=== PATIENT | female | born 1985 | race American Indian/Alaskan Native ===

== ENCOUNTER 2017-11-13 13:10 | Emergency (ER) | payer SELFPAY ==
[2017-11-13 14:12] VITALS: BP 127/67
[2017-11-13 14:34] LABS: Basophils # (Auto) 0.1 K/mm3 (0.0-0.1); Eosinophils % (Auto) 0.4 % (0.0-4.3); Hematocrit 35.2 % (30.3-42.9); Hemoglobin 11.6 gm/dl (10.1-14.3); Lymphocytes # (Auto) 1.1 K/mm3 (1.2-5.4); Lymphocytes % (Auto) 15.2 % (13.4-35.0); Mean Corpuscular HGB Conc 33 % (30-34); Mean Corpuscular Volume 77 fl (79-97); Monocytes # (Auto) 0.5 K/mm3 (0.0-0.8); Monocytes % (Auto) 7.2 % (0.0-7.3); Platelet Count 293 K/mm3 (140-440); Red Cell Distribution Width 14.5 % (13.2-15.2)
[2017-11-13 14:36] LABS: Mean Corpuscular Hemoglobin 25 pg (28-32)
[2017-11-13 14:51] LABS: Alanine Aminotransferase 6 units/L (7-56); Albumin 4.3 g/dL (3.9-5); BUN/Creatinine Ratio 10; Blood Urea Nitrogen 7 mg/dL (7-17); Calcium 9.9 mg/dL (8.4-10.2); Hemolysis Index 0
[2017-11-13 15:16] LABS: Bacteria,Urine 3+ /HPF (Negative); Bilirubin,Urine NEG (Negative); Blood,Urine NEG (Negative); Color,Urine Yellow (Yellow); Mucus,Urine 3+ /HPF
--- NOTE | 2017-11-13 17:57 | Emergency Department Report ---
HPI - General Chief Complaint: Abdominal Pain Time Seen by Provider: 11/13/17 17:42 - HPI HPI: Room 7 The patient is a 32-year-old female presenting with a chief complaint of abdominal cramping. The patient states for the past 2 days she's had intermittent lower abdominal cramping. Denies vaginal bleeding or dysuria. Patient denies nausea vomiting or diarrhea. Patient denies fever. Patient also complains of soreness of her buttocks for the past 2 days. Patient denies preceding trauma Location: [See above] Duration: 2 days Quality: Cramping Severity: Moderate Modifying factors: [see above] Context: [see above] Mode of transportation: [not driving] ED Past Medical Hx - Past Medical History Previous Medical History?: No - Surgical History Past Surgical History?: No - Family History Family history: no significant - Social History Smoking Status: Never Smoker Substance Use Type: None (denies illicit drug use), Alcohol (occasional) - Medications Home Medications: Home Medications Medication Instructions Recorded Confirmed Last Taken Type Cyclobenzaprine [Flexeril] 10 mg PO TID PRN #10 tablet 11/13/17 Unknown Rx Nitrofurantoin Macrocrystal 100 mg PO BID #14 capsule 11/13/17 Unknown Rx [Nitrofurantoin] ED Review of Systems ROS: Stated complaint: CRAMPS Other details as noted in HPI Constitutional: denies: fever Gastrointestinal: abdominal pain. denies: nausea, vomiting, diarrhea Genitourinary: denies: dysuria, abnormal menses Musculoskeletal: myalgia Physical Exam - Physical Exam Vital Signs: Vital Signs 11/13/17 14:07 Temperature 98.0 F Pulse Rate 75 Respiratory 18 Rate Blood Pressure 127/67 O2 Sat by Pulse 100 Oximetry Physical Exam: GENERAL: The patient is well-developed well-nourished female lying on stretcher not appearing to be in acute distress. [] HEENT: Normocephalic. Atraumatic. Extraocular motions are intact. Patient has moist mucous membranes. NECK: Supple. Trachea midline CHEST/LUNGS: Clear to auscultation. There is no respiratory distress noted. HEART/CARDIOVASCULAR: Regular. There is no tachycardia. There is no gallop rub or murmur. ABDOMEN: Abdomen is soft, with discomfort to palpation in the suprapubic region. Patient has normal bowel sounds. There is no abdominal distention. SKIN: There is no rash. There is no edema. There is no diaphoresis. NEURO: The patient is awake, alert, and oriented. The patient is cooperative. The patient has normal speech MUSCULOSKELETAL: There is no evidence of acute injury. ED Course Vital Signs 11/13/17 14:07 Temperature 98.0 F Pulse Rate 75 Respiratory 18 Rate Blood Pressure 127/67 O2 Sat by Pulse 100 Oximetry ED Medical Decision Making - Lab Data Result diagrams: 11/13/17 14:22 11/13/17 14:22 - Radiology Data Radiology results: report reviewed (pelvic ultrasound), image reviewed (pelvic ultrasound) [facility] [address] [place] [address] Ultrasound Report Signed Patient: HALLIE GARNER MR#: [id number] : 1985 Acct:[id number] Age/Sex: 32 / F ADM Date: 11/13/17 Loc: ED Attending Dr: Ordering Physician: TIN WILCOX MD Date of Service: 11/13/17 Procedure(s): US OB transvaginal Accession Number(s): [id number] cc: TIN WILCOX MD FINAL REPORT EXAM: US OB TRANSVAGINAL HISTORY: abd pain in COMPARISON: None available. TECHNIQUE: Several real-time grayscale and color Doppler images were obtained. Transabdominal and transvaginal exam. FINDINGS: Use appears to be retroverted. Uterus measures 11.2 x 4.6 x 6.6 centimeters. There single live IUP better seen on the transabdominal portion exam due to prominent fibroid. Estimated gestational age 8 weeks 1 day. Estimated delivery date [birth year] 24, 2016. heart rate 182 beats per minute. Fibroid measures 8.0 x 9.2 x 8.1 centimeters. Right ovary measures 4.7 x 2.8 x 4.4 centimeters. There is a 1.9 centimeter right ovarian cystic structure which may reflect corpus luteum. There is vascular flow to the right ovary. The left ovary is not visualized. No adnexal masses are demonstrated. IMPRESSION: Single live IUP. Estimated gestational age 8 weeks 1 day. Large fundal fibroid measuring up to 9.2 centimeters. 1.9 centimeter right ovarian cystic structure which may reflect corpus luteum. Left ovary is not visualized. No adnexal masses are demonstrated. Transcribed By: LMA Dictated By: DEXTER ACBRAL MD Electronically Authenticated By: DEXTER CABRAL MD Signed Date/Time: 11/13/171753 DD/ 53 TD/TT: 11/13/171753 - Differential Diagnosis UTI, subchorionic hemorrhage, threatened Critical care attestation.: If time is entered above; I have spent that time in minutes in the direct care of this critically ill patient, excluding procedure time. ED Disposition Clinical Impression: Pelvic cramping, UTI (urinary tract infection), Uterine fibroid Disposition: TO HOME OR SELFCARE Is pt being admited?: No Does the pt Need Aspirin: No Condition: Stable Instructions: Threatened Miscarriage (ED), Abdominal Pain (ED) Additional Instructions: Return to the emergency department immediately should you develop worsening symptoms, fever, inability to tolerate food or liquid or any other concerns. Prescriptions: Cyclobenzaprine [Flexeril] 10 mg PO TID PRN #10 tablet PRN Reason: Muscle Spasm Nitrofurantoin Macrocrystal [Nitrofurantoin] 100 mg PO BID #14 capsule [facility] [Provider Group] - [place] Time of Disposition: 18:36
== END 2017-11-13 18:53 | disposition home or self-care (01) ==
LOC: ED 13:10
DX: O23.41 Unspecified infection of urinary tract in pregnancy, first trimester (principal); O34.11 Maternal care for benign tumor of corpus uteri, first trimester; O26.891 Other specified pregnancy related conditions, first trimester; R10.2 Pelvic and perineal pain; Z3A.08 8 weeks gestation of pregnancy
CPT/HCPCS: 36415; 76801; 76817; 80053; 81001; 84702; 84703; 85025; 99284